=== PATIENT | male | born 1950 | race African-American/Black ===

== ENCOUNTER 2021-05-30 12:38 | Inpatient (IN) | payer MEDICARE, MEDICAID ==
[~2021-05-30] VITALS: Ht 170.2 cm; Wt 57.2 kg
[2021-05-30] MEDS ORDERED: SODIUM CHLORIDE 0.9% 1000ML BAG (SEPSIS BOLUS) IV ONE (13:00)
[2021-05-30] MEDS ORDERED: MORPHINE SULFATE 2 MG/ML CPJ (NOT FOR IM USE) IV ONE (13:00)
[2021-05-30 13:50] LABS: BG BASE EXCESS -3.2 mmol/L (-2.0-2.0); BG CARBOXYHEMOGLOBIN 1.6 % (0.5-1.5); BG DEOXYHEMOGLOBIN 0.3 % (0.0-5.0); BG FRACTION INSPIRED OXYGEN 100; BG HCO3 ACT 20.9 mmol/L (22.0-26.0); BG METHEMOGLOBIN 0.5 % (0.0-1.5); BG OXYGEN SATURATION 99.7 % (92.0-98.5); BG OXYHEMOGLOBIN 97.6 % (94.0-97.0); BG PCO2 33.5 mmHg (35.0-45.0); BG PH 7.413 (7.350-7.450); BG PO2 304.3 mmHg (75.0-100.0); BG SAMPLE SITE RIGHT BRACHIAL; BG TOTAL HEMOGLOBIN 8.6 g/dL (12.0-18.0); BG VENT MODE MASK - NRB
[2021-05-30 14:07] LABS: CHLORIDE 105 mEq/L (98-107)
[2021-05-30 14:10] LABS: HEMOGLOBIN. 7.5 g/dL (14.0-18.0); MEAN CORPUSCULAR HEMOGLOBIN 25.5 pg (28.0-32.0); MEAN CORPUSCULAR VOLUME 81.9 fL (80.0-94.0); MEAN PLATELET VOLUME 7.5 fl (7.4-10.4); PLATELET 455 x1000/uL (130-400); RED BLOOD CELL COUNT 2.93 mill/uL (4.7-6.1); RED CELL DISTRIBUTION WIDTH 20.1 % (11.6-14.6)
[2021-05-30 14:27] LABS: D-DIMER 4.54 mg/L FEU (<0.50); PARTIAL THROMBOPLASTIN TIME 27.5 sec (23.4-31.0); PROTHROMBIN TIME 10.6 sec (9.6-11.0)
[2021-05-30 15:42] LABS: PLATELET ESTIMATE INCREASED
[2021-05-30] MEDS ORDERED: IOHEXOL-350 100 ML BOTTLE ONE (17:05)
[2021-05-30 19:09] LABS: CLARITY URINE CLEAR (CLEAR); COLOR URINE YELLOW (YELLOW); KETONES URINE NEGATIVE (NEGATIVE); LEUKOCYTE ESTERASE URINE TRACE (NEGATIVE); NITRITE URINE NEGATIVE (NEGATIVE); OCCULT BLOOD URINE NEGATIVE (NEGATIVE); PH URINE 5.5 (4.5-8.0); PROTEIN URINE TRACE (NEGATIVE); SPECIFIC GRAVITY URINE 1.038 (1.005-1.030); UROBILINOGEN URINE 0.2 E.U./dL (0.2-1.0)
[2021-05-30] MEDS ORDERED: CEFTRIAXONE 1 G PREMIX 50 ML IV ONE (19:30)
[2021-05-30] MEDS ORDERED: AZITHROMYCIN 500MG/250ML 250 ML IV ONE (19:30)
[2021-05-30] MEDS ORDERED: ACETAMINOPHEN 325MG TABLET PO PRN (22:15)
[2021-05-30] MEDS ORDERED: IPRATROPIUM/ALBUTEROL 0.5-3(2.5)MG/3ML NEB HHN PRN (22:15)
[2021-05-30] MEDS ORDERED: ONDANSETRON HCL 4MG/2ML INJ IV PRN (22:15)
[2021-05-30] MEDS: SODIUM CHLORIDE 0.45% 1,000 ML IV SCH (22:47)
[2021-05-30] MEDS: PANTOPRAZOLE SODIUM 40 MG/VIAL IV SCH (22:47)
[2021-05-31] VITALS (13 sets, daily range): BP systolic 110–141; BP diastolic 40–52
[2021-05-31 05:15] LABS: BASOPHILS % 0.2 % (0.0-2.0); EOSINOPHILS % 0.3 % (0.0-5.0); LYMPHOCYTES % 7.1 % (20.0-50.0); MEAN CORPUSCULAR HEMOGLOBIN 26.4 pg (28.0-32.0); MEAN CORPUSCULAR VOLUME 79.4 fL (80.0-94.0); MEAN PLATELET VOLUME 6.8 fl (7.4-10.4); MONOCYTES % 7.6 % (2.0-8.0); NEUTROPHILS % 84.8 % (40.0-76.0); PLATELET 404 x1000/uL (130-400); RED BLOOD CELL COUNT 2.58 mill/uL (4.7-6.1); RED CELL DISTRIBUTION WIDTH 19.9 % (11.6-14.6)
[2021-05-31 05:22] LABS: CHLORIDE 108 mEq/L (98-107)
[2021-05-31 05:31] LABS: CREATINE KINASE 66 IU/L (39-308); HEMOGLOBIN. 6.8 g/dL (14.0-18.0); LDL CHOLESTEROL 88 mg/dL (5-100)
[2021-05-31 05:32] LABS: HEMATOCRIT. 20.5 % (42.0-52.0)
[2021-05-31 05:33] LABS: HDL CHOLESTEROL 40 mg/dL (40-59)
[2021-05-31 05:35] LABS: CREATINE KINASE MB FRACTION 1.2 ng/mL (0.5-3.6)
[2021-05-31] MEDS: MORPHINE SULFATE 2 MG/ML CPJ (NOT FOR IM USE) IV PRN ×2 (06:00→10:53)
[2021-05-31] MEDS ORDERED: FERR325T6 PO (10:26)
[2021-05-31] MEDS ORDERED: TAMS-11 PO (10:26)
[2021-05-31] MEDS ORDERED: FINA5TAB11 PO (10:26)
[2021-05-31] MEDS ORDERED: NICO-645 TP (10:26)
[2021-05-31] MEDS ORDERED: CYAN50009 PO (10:26)
[2021-05-31] MEDS ORDERED: AMLO10TA80 PO (10:26)
[2021-05-31] MEDS ORDERED: PROT40 PO (10:26)
[2021-05-31] MEDS: PANTOPRAZOLE SODIUM 40 MG/VIAL IV SCH ×2 (10:52→17:55)
[2021-05-31] MEDS ORDERED: CLONIDINE 0.1MG TABLET PO PRN (12:15)
[2021-05-31] MEDS: LEVOFLOXACIN 500MG PREMIX 100 ML IV SCH (15:23)
[2021-05-31] MEDS: SODIUM CHLORIDE 0.45% 1,000 ML IV SCH (15:24)
[2021-05-31 17:01] LABS: HEMATOCRIT 27.7 % (42.0-52.0); HEMOGLOBIN 9.2 g/dL (14.0-18.0)
[2021-05-31 17:09] LABS: PROTHROMBIN TIME 10.4 sec (9.6-11.0)
[2021-05-31 17:28] LABS: TOTAL IRON BINDING CAPACITY 308 ug/dL (250-450)
[2021-05-31 17:29] LABS: CREATINE KINASE 59 IU/L (39-308)
[2021-05-31 17:31] LABS: CREATINE KINASE MB FRACTION 1.3 ng/mL (0.5-3.6)
[2021-05-31 17:35] LABS: FERRITIN 54 ng/mL (22-322)
[2021-06-01] VITALS: BP 99/60
[2021-06-01] MEDS: SODIUM CHLORIDE 0.45% 1,000 ML IV SCH ×2 (00:55→14:15)
[2021-06-01 04:00] VITALS: BP 129/49
[2021-06-01 07:31] LABS: BASOPHILS % 0.7 % (0.0-2.0); EOSINOPHILS % 0.8 % (0.0-5.0); HEMATOCRIT. 27.4 % (42.0-52.0); HEMOGLOBIN. 9.5 g/dL (14.0-18.0); LYMPHOCYTES % 11.2 % (20.0-50.0); MEAN CORPUSCULAR HEMOGLOBIN 27.8 pg (28.0-32.0); MEAN CORPUSCULAR VOLUME 80.4 fL (80.0-94.0); MEAN PLATELET VOLUME 7.2 fl (7.4-10.4); NEUTROPHILS % 78.3 % (40.0-76.0); PLATELET 385 x1000/uL (130-400)
[2021-06-01 08:00] VITALS: BP 114/50
[2021-06-01 08:10] LABS: CHLORIDE 107 mEq/L (98-107)
[2021-06-01] MEDS: PANTOPRAZOLE SODIUM 40 MG/VIAL IV SCH ×2 (09:45→17:42)
[2021-06-01 12:00] VITALS: BP 131/49
[2021-06-01] MEDS: LEVOFLOXACIN 500MG PREMIX 100 ML IV SCH (14:20)
[2021-06-01] MEDS ORDERED: HYDR-4001 MT (15:39)
[2021-06-01] MEDS ORDERED: LEVO500T89 MT (15:47)
[2021-06-01 16:00] VITALS: BP 133/55
[2021-06-01 16:28] LABS: VITAMIN B12 SERUM 514 pg/mL (211-911)
[2021-06-01 17:26] VITALS: BP 133/55
[2021-06-02] MEDS ORDERED: FERROUS SULFATE 325MG TABLET PO SCH (07:50)
[2021-06-02] MEDS ORDERED: ASCORBIC ACID 500 MG TABLET PO SCH (09:00)
== END 2021-06-01 18:56 | disposition home or self-care (01) | DRG 377 ==
LOC: ER 12:53 → MICUSO 15:02 → EDBEDREQ 15:15 → EDBEDREQTM 15:15 → 6WST 05-31 10:36
PROVIDERS: ADMIT Internal Medicine; ATTEND Internal Medicine
PROC: 30233N1 Transfusion of Nonautologous Red Blood Cells into Peripheral Vein, Percutaneous Approach (ICD-10-PCS; principal; 2021-05-31)
DX: K92.2 Gastrointestinal hemorrhage, unspecified (principal); J18.9 Pneumonia, unspecified organism; K86.1 Other chronic pancreatitis; C79.51 Secondary malignant neoplasm of bone; N13.8 Other obstructive and reflux uropathy; J44.1 Chronic obstructive pulmonary disease with (acute) exacerbation; E87.2 Acidosis; M84.58XA Pathological fracture in neoplastic disease, other specified site, initial encounter for fracture; J98.11 Atelectasis; Z20.822 Contact with and (suspected) exposure to COVID-19; D50.9 Iron deficiency anemia, unspecified; N32.0 Bladder-neck obstruction; I25.10 Atherosclerotic heart disease of native coronary artery without angina pectoris; N40.1 Benign prostatic hyperplasia with lower urinary tract symptoms; I10 Essential (primary) hypertension; J44.9 Chronic obstructive pulmonary disease, unspecified; S33.5XXA Sprain of ligaments of lumbar spine, initial encounter; W18.39XA Other fall on same level, initial encounter; F10.11 Alcohol abuse, in remission; Z87.19 Personal history of other diseases of the digestive system; Z92.21 Personal history of antineoplastic chemotherapy; Y93.89 Activity, other specified; Y92.89 Other specified places as the place of occurrence of the external cause; Y99.8 Other external cause status; Z72.0 Tobacco use
CPT/HCPCS: 36415; 36600; 71045; 71275; 72148; 74176; 80048; 80053; 80061; 81003; 82375; 82550; 82553; 82607; 82728; 82746; 82805; 83540; 83550; 83605; 83880; 84145; 84484; 85014; 85018; 85025; 85379; 86850; 86900; 86920; 87426; 93005; 93970; 97162; 97535; 97760; 99291; C9113; J0456; J0696; J1956; J2270; J2405; J7030; P9016; Q9967

== ENCOUNTER 2025-03-05 13:38 | Emergency (ER) | payer MEDICARE, MEDICAID ==
[~2025-03-05] VITALS: Ht 167.6 cm; Wt 51.0 kg
[~2025-03-05 13:38] MED LIST: AMLO10TA80 PO; CYAN50009 PO; FERR325T6 PO; FINA5TAB11 PO; HYDR-4001 MT; LEVO-65 MT; NICO-645 TP; PROT40 PO; TAMS-54 PO
[2025-03-05 13:41] VITALS: O2SAT 100
[2025-03-05 15:27] VITALS: BP 125/67; PULSE 95; RESP 15; TEMP 37.1; O2SAT 100
== END 2025-03-05 15:33 | disposition left against medical advice (07) ==
LOC: ER 13:38 → CMPBEDREQ 03-06 07:27
DX: R55 Syncope and collapse (principal); I10 Essential (primary) hypertension; Z86.73 Personal history of transient ischemic attack (TIA), and cerebral infarction without residual deficits; Z95.828 Presence of other vascular implants and grafts
CPT/HCPCS: 71045; 93005; 99284